=== PATIENT | female | born 1960 | race Caucasian/White ===

== ENCOUNTER 2018-07-12 13:48 | Outpatient (CLI) | payer OTHER ==
--- NOTE | 2018-07-13 12:23 | Mammography Report ---
Reason: ENCOUNTER FOR SCREENING MAMMOGRAM FOR MALIGNANT NE Procedure Date: 07/12/2018 Accession Number: [id number] / [id number] Procedure: JAYY - Screening Mammo w/River CPT Code: FULL RESULT: EXAM: Screening Mammo w/River DATE: 07/12/2018 3:04 PM CLINICAL HISTORY: Routine screening. No reported personal history of breast cancer. Family history of breast cancer in mother at age 62. TECHNIQUE: (B) - Bilateral CC and MLO views were obtained. COMPARISON: None PARENCHYMAL PATTERN: (D) - The breasts demonstrate heterogeneously dense fibroglandular parenchyma bilaterally. FINDINGS: Bilateral breasts: There are no suspicious masses, calcifications, or areas of distortion. IMPRESSION: Negative examination. BI-RADS category 1. RECOMMENDATION: (ANNUAL) - Recommend routine annual screening mammography. BI-RADS CATEGORY: (1) - Negative STANDARD QUALIFYING STATEMENTS: 1. This examination was not reviewed with the aid of Computer-Aided Detection (CAD). 2. A negative or benign imaging report should not preclude biopsy if clinically suspicious findings are present. 3. Dense breasts may obscure an underlying neoplasm. 4. This examination was reviewed with the aid of 3D breast imaging (tomosynthesis).
== END 2018-07-12 13:49 | disposition home or self-care (01) ==
LOC: DI 13:48
PROVIDERS: ATTEND Registered Nurse
DX: Z12.31 Encounter for screening mammogram for malignant neoplasm of breast (principal); Z80.3 Family history of malignant neoplasm of breast
CPT/HCPCS: 77063; 77067

== ENCOUNTER 2019-09-18 08:45 | Outpatient (CLI) | payer OTHER ==
--- NOTE | 2019-09-18 11:10 | Ultrasound Report ---
Reason: MASS AND LUMP IN NECK Procedure Date: 09/18/2019 Accession Number: [id number] / [id number] Procedure: US - Head or Neck Soft Tissue CPT Code: Final Report FULL RESULT: PROCEDURE: Head or Neck Soft Tissue INDICATIONS: MASS AND LUMP IN NECK TECHNIQUE: Real time scanning was performed of the neck region of interest, with image documentation. COMPARISON: None. FINDINGS: In the area of palpable abnormality in the left neck, superior to the thyroid no discrete mass, focal fluid collection or lymphadenopathy is seen. Right lobe of the thyroid measures 5.3 x 1.2 x 1.5 cm the left lobe of the thyroid measures 5.3 x 1.3 x 1.2 cm. Isthmus measures 3 mm. Within the mid right lobe there is a sub-5 mm cyst with cystic, hypoechoic appearance and smooth margins, no echogenic foci. (not suspicious). IMPRESSION: No discrete mass or lymphadenopathy seen in the region of left neck palpable abnormality. Reviewed by: Ismael Mariscal MD on 09/18/2019 11:08 AM PDT Approved by: Ismael Mariscal MD on 09/18/2019 11:08 AM PDT Station ID: [id number]
== END 2019-09-18 08:46 | disposition home or self-care (01) ==
LOC: DI 08:45
PROVIDERS: ATTEND Registered Nurse
DX: E04.1 Nontoxic single thyroid nodule (principal)
CPT/HCPCS: 76536

== ENCOUNTER 2020-05-14 20:49 | Outpatient (CLI) | payer OTHER | END 2020-05-14 23:59 | disposition short-term general hospital (02) | LOC: EMS 20:49 | DX: R29.898 Other symptoms and signs involving the musculoskeletal system (principal); R47.81 Slurred speech | CPT/HCPCS: A0425; A0429 ==

== ENCOUNTER 2021-01-15 10:18 | Outpatient (CLI) | payer OTHER ==
--- NOTE | 2021-01-15 10:49 | XRAY Report ---
PROCEDURE: Foot 3 View RT INDICATIONS: M79.671 TECHNIQUE: 3 views of the foot were acquired. COMPARISON: None. FINDINGS: Bones/joints: No acute, displaced fracture or dislocation. Deficiency of the first metatarsal head, l ikely reflecting prior bunionectomy. Small plantar calcaneal enthesophyte. Small os trigonum. Soft tissues: No focal abnormality. IMPRESSION: 1.No acute osseous abnormality. Reviewed by: Dirk Ventura MD on 01/15/2021 10:48 AM PDT Approved by: Dirk Ventura MD on 01/15/2021 10:48 AM PDT Station ID: [id number]
== END 2021-01-15 10:19 | disposition home or self-care (01) ==
LOC: DI 10:18
PROVIDERS: ATTEND Podiatrist
DX: M79.671 Pain in right foot (principal)

== ENCOUNTER 2021-11-02 07:41 | Outpatient (CLI) | payer OTHER ==
--- NOTE | 2021-11-02 11:58 | Mammography Report ---
BILATERAL DIGITAL SCREENING MAMMOGRAM 3D/2D: 11/02/2021 CLINICAL: Routine screening. Family history of breast cancer. Comparison is made to exams dated: 07/12/2018 mammogram - [facility], 10/06/2011 mamm ogram, 09/30/2010 mammogram, 06/27/2008 mammogram, 06/15/2007 mammogram, and 05/18/2006 mammogram - [facility]. The tissue of both breasts is predominantly fatty. No significant masses, calcifications, or other findings are seen in either breast. There has been no significant interval change. IMPRESSION: NEGATIVE There is no mammographic evidence of malignancy. A 1 year screening mammogram is recommended. Based on the Tyrer Cuzick model (a risk assessment model) the patients lifetime risk is 10.0% and he r 10 year risk is 4.4%. According to the ACR, ACS, and NCCN guidelines, an annual breast MRI exam kirsten ng with mammogram is recommended if the patients lifetime risk is 20% or greater. This exam was interpreted at Station ID: [id number]. NOTE: For mammograms, a report in lay terms will be sent to the patient. Approximately 15% of breast malignancies will not be visualized mammographically. In the management of a palpable breast mass, a negative mammogram must not discourage biopsy of a clinically suspicious lesion. Electronically Signed By: Sridhar Vick acr/penrad:11/02/2021 09:07:39 ACR BI-RADS Category 1: Negative 3341F PARENCHYMAL PATTERN: (F) - The breast(s) demonstrate(s) diffuse fatty replacement. BI-RADS CATEGORY: (1) - 1 RECOMMENDATION: (ANNUAL) - Recommend routine annual screening mammography. [id number] 1 year screening LATERALITY: (B)
== END 2021-11-02 07:42 | disposition home or self-care (01) ==
LOC: DI.S 07:41
PROVIDERS: ATTEND Registered Nurse
DX: Z12.31 Encounter for screening mammogram for malignant neoplasm of breast (principal); Z80.3 Family history of malignant neoplasm of breast

== ENCOUNTER 2022-12-08 08:16 | Outpatient (CLI) | payer OTHER ==
--- NOTE | 2022-12-08 16:26 | CT Report ---
PROCEDURE: Low Dose Lung Cancer Screen INDICATIONS: TOBACCO USER TECHNIQUE: A CT scan of the chest was performed. Intravenous contrast media was not administered. Images were re corded and evaluated at appropriate window settings. Reformats: axial MIP of the chest, coronal and s agittal. For radiation dose reduction, the following was used: automated exposure control, adjustment of mA and/or kV according to patient size. COMPARISON: None. FINDINGS: Image quality: Excellent. Prior cancer history: Unsure. Lungs and pleura: No pleural effusions. No pneumothorax. Pulmonary nodules as follows: -Right upper lobe 4 mm nodule (4/131, MIP image 66) -Right upper lobe 4 mm nodule (4/91, MIP image 46) -Left lower lobe triangular-shaped 5 mm nodule along the fissure (4/163, MIP image 81), likely subfis sural lymph node. Mediastinum: Heart size is normal. No pericardial effusion. No large vessel abnormality. No mediastin al adenopathy by size criteria. Chest wall and lower neck: Thyroid is unremarkable. No axillary or supraclavicular adenopathy by size . Bones: No acute or suspicious osseous abnormality. Mild S-shaped scoliosis. Moderate degenerative nancy nges of the spine. Upper Abdomen: Left renal simple cyst. Remainder the visualized upper abdomen is unremarkable on this noncontrast study. IMPRESSION: Multiple scattered 4 - 5 mm pulmonary nodules. Lung RAD: 2 - Benign. Recommendation: Continue annual screening in 12 Months with LDCT Non-Lung Significant Findings: None. Reviewed by: Ade Glasgow MD on 12/08/2022 4:24 PM PDT Approved by: Ade Glasgow MD on 12/08/2022 4:24 PM PDT Station ID: [id number]
== END 2022-12-08 08:17 | disposition home or self-care (01) ==
LOC: DI 08:16
PROVIDERS: ATTEND Registered Nurse
DX: Z12.2 Encounter for screening for malignant neoplasm of respiratory organs (principal); R91.8 Other nonspecific abnormal finding of lung field; Z72.0 Tobacco use

== ENCOUNTER 2023-11-08 07:44 | Outpatient (CLI) | payer OTHER ==
--- NOTE | 2023-11-08 10:50 | Mammography Report ---
BILATERAL DIGITAL SCREENING MAMMOGRAM 3D/2D: 11/08/2023 CLINICAL: Routine screening. Comparison is made to exams dated: 10/27/2022 mammogram, 11/02/2021 mammogram, and 07/12/2018 mammogram - [facility]. Both breasts are heterogeneously dense, which may obscure small masses (category c / 51-75% glandular tissue). No significant masses, calcifications, or other findings are seen in either breast. There has been no significant interval change. IMPRESSION: NEGATIVE There is no mammographic evidence of malignancy. A 1 year screening mammogram is recommended. Based on the Tyrer Cuzick model (a risk assessment model) the patient's lifetime risk is 10.7% and he r 10 year risk is 5.1%. According to the ACR, ACS, and NCCN guidelines, an annual breast MRI exam kirsten ng with mammogram is recommended if the patient's lifetime risk is 20% or greater. This exam was interpreted at Station ID: [id number]. NOTE: For mammograms, a report in lay terms will be sent to the patient. Approximately 15% of breast malignancies will not be visualized mammographically. In the management of a palpable breast mass, a negative mammogram must not discourage biopsy of a clinically suspicious lesion. Electronically Signed By: Phuc jackson/oni:11/08/2023 09:11:03 letter sent: No_Letter ACR BI-RADS Category 1: Negative 3341F PARENCHYMAL PATTERN: (D) - The breast(s) demonstrate(s) heterogeneously dense fibroglandular brain barnhart. BI-RADS CATEGORY: (1) - 1 RECOMMENDATION: (ANNUAL) - Recommend routine annual screening mammography. [id number] 1 year screening LATERALITY: (B)
== END 2023-11-08 07:45 | disposition home or self-care (01) ==
LOC: DI.S 07:44
PROVIDERS: ATTEND Registered Nurse
DX: Z12.31 Encounter for screening mammogram for malignant neoplasm of breast (principal); R92.333 Mammographic heterogeneous density, bilateral breasts

== ENCOUNTER 2023-12-22 14:09 | Outpatient (CLI) | payer OTHER ==
--- NOTE | 2023-12-22 16:26 | CT Report ---
PROCEDURE: Lung Cancer Screen INDICATIONS: TOBACCO USER TECHNIQUE: A CT scan of the chest was performed. Intravenous contrast media was not administered. Images were re corded and evaluated at appropriate window settings. Reformats: axial MIP of the chest, coronal and s agittal. For radiation dose reduction, the following was used: automated exposure control, adjustment of mA and/or kV according to patient size. COMPARISON: 12/08/2022 FINDINGS: Image quality: Diagnostic Lungs and pleura:No dense airspace disease, pleural effusions, or new or enlarging nodule. Mild, most ly paraseptal emphysema seen in the upper lobes. Numerous pulmonary nodules are stable, for example in the right image 10/27, and on the left image 10 /58. These measure under 6 mm. Mediastinum, heart, and esophagus: Normal heart size. No pathologic lymph nodes by size criteria. Ath erosclerotic calcifications are present. Chest wall and thyroid: Unremarkable Upper abdomen: No gross abnormality on these low-dose noncontrast limited images Bones: Nonacute appearing right rib fractures. No acute or suspicious finding. There are degenerative changes. IMPRESSION: Stable multiple pulmonary nodules bilaterally. Lung RADS 2: Continue annual screening. Other findings above. Reviewed by: Luis Bolaños MD on 12/22/2023 4:25 PM PDT Approved by: Luis Bolaños MD on 12/22/2023 4:25 PM PDT Station ID: [id number]
== END 2023-12-22 14:10 | disposition home or self-care (01) ==
LOC: DI 14:09
PROVIDERS: ATTEND Registered Nurse
DX: Z12.2 Encounter for screening for malignant neoplasm of respiratory organs (principal); R91.8 Other nonspecific abnormal finding of lung field; Z72.0 Tobacco use

== ENCOUNTER 2024-01-03 14:00 | Outpatient (CLI) | payer OTHER ==
--- NOTE | 2024-01-03 16:52 | DEXA Report ---
PROCEDURE: Dexa Spine and/or Hip INDICATIONS: POST MENOPAUSAL TECHNIQUE: Dual energy x-ray absorptiometry (DXA) was performed on a [employer]. Regions measur ed are the AP Spine, femoral neck, and if needed forearm. COMPARISON: None FINDINGS: Lumbar Spine: Bone Mineral Density: 1.089 g/cm/cm,T score: -0.8. Normal Left Femoral Neck: Bone Mineral Density: 0.659 g/cm/cm, T score: -2.7. Osteoporosis Left Hip: Bone Mineral Density: 0.821 g/cm/cm,T score: -1.5. Osteopenia (T score greater or equal to -1.0: NORMAL) (T score from -1.1 to -2.4: OSTEOPENIA) (T score less than or equal to -2.5 to: OSTEOPOROSIS) Impression: By WHO criteria, this patient has osteoporosis. Patients with diagnosis of osteoporosis or osteopenia should have regular bone mineral density assess ment. For those eligible for Medicare, routine testing is allowed once every 2 years. Testing frequ ency can be increased for patients who have rapidly progressing disease or for those who are receivin g medical therapy to restore bone mass. Reviewed by: Hussain Underwood MD on 01/03/2024 4:51 PM PDT Approved by: Hussain Underwood MD on 01/03/2024 4:51 PM PDT Station ID: [id number]
== END 2024-01-03 14:01 | disposition home or self-care (01) ==
LOC: DI 14:00
PROVIDERS: ATTEND Registered Nurse
DX: M81.0 Age-related osteoporosis without current pathological fracture (principal); Z78.0 Asymptomatic menopausal state